=== PATIENT | male | born 1975 | race African-American/Black ===

== ENCOUNTER 2020-06-08 06:44 | Emergency (ER) | payer OTHER ==
[~2020-06-08] VITALS: Ht 180.3 cm; Wt 72.6 kg
[2020-06-08 06:52] VITALS: BP 138/98
--- NOTE | 2020-06-08 07:03 | NUR ---
shakila [address] [facility] c/o sob x3 days, + covid yesterday. Patient a/ox4, breathing even and unlabored, no sob noted, needs attended, kept comfortable.
--- NOTE | 2020-06-08 07:21 | NUR ---
ATTEMPTED TO START A PERIPHERAL IV LINE, AND GET BLOOD WORKS. PATIENT REFUSED AND RUDE TO STAFF. PATIENT ON ROOM AIR WITH SPO2 OF 98%. BREATHING EVEN AND UNLABORED, NO SOB NOTED.
--- NOTE | 2020-06-08 07:32 | NUR ---
AT BEDSIDE FOR EVAL.
[2020-06-08] MEDS ORDERED: ALBUTEROL SULFATE INH 18 GM HFA.AER.AD IH STA (07:34)
[2020-06-08] MEDS ORDERED: ALBUTEROL FS 2.5 MG/0.5 ML VIAL.NEB ONE (07:38)
[2020-06-08] MEDS ORDERED: DEXAMETHASONE SOD PHOSPHATE 10 MG/ML VIAL ONE (07:38)
[2020-06-08] MEDS ORDERED: DEXAMETHASONE SOD PHOSPHATE 10 MG/ML VIAL IM ONE (08:00)
== END 2020-06-08 08:10 | disposition home or self-care (01) ==
LOC: ER 06:48
DX: J45.909 Unspecified asthma, uncomplicated (principal); I10 Essential (primary) hypertension; Z60.2 Problems related to living alone
CPT/HCPCS: 96372; 99283; J1100

== ENCOUNTER 2021-01-28 21:17 | Emergency (ER) | payer OTHER ==
[~2021-01-28] VITALS: Ht 177.8 cm; Wt 76.2 kg
--- NOTE | 2021-01-28 21:30 | NUR ---
bibra [id number] from [facility] c/o dizziness and weakness s/p smoking weed. pt aox4 rr even and unlabored. no sob noted. no nvd at this time. pt gowned and placed on monitor. no acute distress noted. pt evaluated by GILLES Peralta.
--- NOTE | 2021-01-28 23:01 | NUR ---
Patient discharged to home in stable condition. Written and verbal after care instructions given. Patient verbalizes understanding of instruction.
[2021-01-28 23:02] VITALS: BP 134/79
== END 2021-01-28 23:02 | disposition home or self-care (01) ==
LOC: ER 21:19
DX: R53.1 Weakness (principal); R42 Dizziness and giddiness; I10 Essential (primary) hypertension; J45.909 Unspecified asthma, uncomplicated; Z88.2 Allergy status to sulfonamides; Z60.2 Problems related to living alone; Z20.89 Contact with and (suspected) exposure to other communicable diseases
CPT/HCPCS: 82962-TC